=== PATIENT | male | born 1995 | race Caucasian/White ===

== ENCOUNTER 2020-05-01 17:06 | Emergency (ER) | payer OTHER ==
[~2020-05-01] VITALS: Ht 177.8 cm; Wt 70.5 kg
[2020-05-01] MEDS ORDERED: LIDOCAINE 1% MDV 20ML VIAL SC ONE (18:00)
--- NOTE | 2020-05-01 18:38 | REPVR ---
PROCEDURE INFORMATION: Exam: XR Left Hand Exam date and time: 05/01/2020 6:06 PM Age: 25 years old Clinical indication: Injury or trauma; Other: Injury with power tool R/O FX; Work related; Laceration; Hand; Left TECHNIQUE: Imaging protocol: XR Left hand. Views: 3 or more views. COMPARISON: No relevant prior studies available. FINDINGS: Bones/joints: There is no fracture or dislocation. No focal osseous lesion. The joint spaces are intact. Soft tissues: No evidence of foreign body. IMPRESSION: No fracture. Electronically signed by: Osman Salazar On 05/01/2020 18:38:52 PM
[2020-05-01 18:55] VITALS: BP 118/65
== END 2020-05-01 18:56 | disposition home or self-care (01) ==
LOC: M ED 17:06
DX: S61.412A Laceration without foreign body of left hand, initial encounter (principal); W29.8XXA Contact with other powered hand tools and household machinery, initial encounter; Y92.9 Unspecified place or not applicable; Y99.1 Military activity; F17.200 Nicotine dependence, unspecified, uncomplicated; Z88.0 Allergy status to penicillin; Z88.1 Allergy status to other antibiotic agents